=== PATIENT | female | born 1955 | race African-American/Black ===

== ENCOUNTER 2023-12-17 10:13 | Day surgery (SDC) | payer BC, MEDICARE ==
[2023-12-16 10:47] VITALS: BMI 21.7
[2023-12-17] MEDS ORDERED: MIDAZOLAM HCL 2 MG/2 ML SINGLE DOSE VIAL ONE (10:28)
[2023-12-17 10:49] VITALS: RESP 18
[2023-12-17] MEDS: PHENYLEPHRINE 2.5% OPTHALMIC DROP 2ML BOTTLE ONE (10:50)
[2023-12-17] MEDS: CIPROFLOXACIN 0.3% EYE DROPS 5 ML BOTTLE ONE (10:50)
[2023-12-17] MEDS: TROPICAMIDE 1% OPHTH SOLN 15 ML BOTTLE ONE (10:50)
[2023-12-17] MEDS: CYCLOPENTOLATE 2% OPHTH SOLN 2 ML BOTTLE ONE (10:50)
[2023-12-17] MEDS ORDERED: TETRACAINE 0.5% OPHTH SOLN 2 ML BOTTLE ONE (11:08)
[2023-12-17] MEDS ORDERED: CARBACHOL 0.01% INTRA-OCULAR 1.5 ML VIAL ONE (11:08)
[2023-12-17] MEDS ORDERED: NEO/POLYMYX B SULF/DEXAMETH OPHTHALMIC 5ML BOTTLE ONE (11:08)
[2023-12-17] MEDS ORDERED: LIDOCAINE 1% P/F 10 MG/ML VIAL ONE (11:08)
[2023-12-17] MEDS ORDERED: BSS (NA/CA/MG/K) BALANCED SALT SOLUTION OPHTH SOLN 15 ML BOTTLE ONE (12:26)
[2023-12-17 12:43] VITALS: TEMP 97.4
[2023-12-17 12:59] VITALS: BP 133/71; PULSE 70
== END 2023-12-17 13:10 | disposition home or self-care (01) ==
LOC: FASU 10:13
PROVIDERS: ATTEND Ophthalmology
PROC: 08RK3JZ Replacement of Left Lens with Synthetic Substitute, Percutaneous Approach (ICD-10-PCS; principal; 2023-12-17 12:07)
DX: H26.8 Other specified cataract (principal)
CPT/HCPCS: 66984; V2632